=== PATIENT | male | born 1960 | race Caucasian/White ===

== ENCOUNTER → 2018-11-16 14:16 | Outpatient (CLI) | payer OTHER, SELFPAY ==
[2018-11-16 14:36] LABS: Basophils # 0.1 K/mm3 (0-0.2); Basophils % 0.8 % (0.1-2.0); Eosinophils # 0.2 K/mm3 (0.0-0.4); Eosinophils % 2.8 % (0.1-12.0); Hematocrit 49.5 % (42.0-52.0); Hemoglobin 16.4 g/dL (14.1-18.0); Lymphocytes # 2.1 K/mm3 (0.7-4.5); Lymphocytes % 30.4 % (10-50); Mean Corpuscular HGB Conc 33.2 g/dL (31.8-35.4); Mean Corpuscular Hemoglobin 33.4 pg (27.0-31.2); Mean Corpuscular Volume 100.6 fl (80-94); Mean Platelet Volume 8.5 fl (7.4-10.4); Monocytes # 0.5 K/mm3 (0.1-1.0); Neutrophils # 4.1 K/mm3 (1.8-7.8); Neutrophils % 58.9 % (37.0-80.0); Platelet Count 285 K/mm3 (142-424); Red Blood Count 4.92 M/mm3 (4.60-6.20); Red Cell Distribution Width 13.4 % (11.5-17.5)
[2018-11-16 15:20] LABS: Alanine Aminotransferase 65 U/L (12-78); Albumin Level 3.9 gm/dL (3.4-5.0); Albumin/Globulin Ratio 1.1 (1.1-1.8); Alkaline Phosphatase 110 U/L (46-116); Anion Gap 16.2 mEq/L (5-15); Aspartate Amino Transferase 22 U/L (15-37); Bilirubin,Total 0.3 mg/dL (0.2-1.0); Blood Urea Nitrogen 17 mg/dL (7-18); Calcium 9.4 mg/dL (8.5-10.1); Carbon Dioxide 25 mmol/L (21.0-32.0); Chloride 105 mmol/L (98-107); Chol/HDL Ratio 7.7 (1-3.5); Cholesterol 222 mg/dL (140-200); Creatinine,Serum 0.74 mg/dL (0.70-1.30); Estimated Glomerular Filt Rate 109 ml/min (>60); Free T4 (Free Thyroxine) 0.92 ng/dl (0.76-1.46); GFR (African American) 132 ML/MIN (>60); Globulin 3.5 gm/dl (1.3-3.2); Glucose 86 mg/dL (74-106); HDL Cholesterol 29 mg/dL (27-67); Potassium 4.2 mmoL/L (3.5-5.1); Prostate Specific Ag Screen 1.2 ng/mL (0.0-4.0); Sodium 142 mmol/L (136-145); Thyroid Stimulating Hormone 2.48 uIU/ml (0.358-3.740); Total Protein,Serum 7.4 gm/dL (6.4-8.2); Triglycerides 404 mg/dL (30-200)
[2018-11-16 15:35] LABS: Hemoglobin A1C 5.7 % (0.0-7.0)
[2018-11-18 09:13] LABS: Hep A Ab, IgM Negative (Negative); Hepatitis B Core Antibody IgM Negative (Negative); Hepatitis B Surface Antigen Negative (Negative)
[2018-11-19 16:28] LABS: Vitamin D 25 Hydroxy 10.5 ng/mL (30.0-100.0)
[2018-11-19 16:33] LABS: Hepatitis C Antibody <0.1 s/co ratio (0.0-0.9)
== END ==
PROVIDERS: Physician Assistant; Visit Provider Nurse Practitioner Family
DX: D72.829 Elevated white blood cell count, unspecified (principal); E66.9 Obesity, unspecified; Z72.0 Tobacco use; R53.83 Other fatigue; E11.9 Type 2 diabetes mellitus without complications; G25.81 Restless legs syndrome
CPT/HCPCS: 80053; 80061; 80074; 82607; 82652; 82746; 83036; 84439; 84443; 85025; G0103

== ENCOUNTER → 2018-11-23 14:09 | Outpatient (CLI) | payer OTHER, SELFPAY ==
--- NOTE | 2018-11-23 14:10 | MR_ITS ---
PROCEDURE: MR HIP LT WO CON CLINICAL INDICATION: abnormal xr Left hip pain, pain when walking COMPARISON: HIP2L HIP-2 VIEWS-LT from 10/08/2013 Hip L from 10/31/2018 TECHNIQUE: Routine multiplanar multi echo sequences are performed without gadolinium enhancement. FINDINGS: There are severe osteoarthritic changes of the left hip with loss of joint space, osteosclerosis, subarticular cystic change, and flattening of the femoral head with osteophytes noted. There is a small left hip joint effusion. There is mild lateral displacement of the femoral head with buttressing osteophytes along the lateral aspect of the acetabulum and inferior aspect of the femur. There is some edema in the femoral head. The right femoral head has an unremarkable appearance aside from mild osteoarthritic changes of the right hip. There is however, an area of decreased T1 and increased T2 signal within the inferior aspect of the right ilium which extends to the anterior aspect of the acetabular roof this is fairly well-circumscribed and may contain some internal matrix. Possible enchondroma or chondrosarcoma. No soft tissue component evident. Would suggest a CT scan for better bony definition and a nuclear medicine bone scan to determine activity. If a bone scan is performed would go ahead and do at of the whole body with attention to the right pelvis as a metastatic lesion is also consideration. IMPRESSION: 1. 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 Somewhat suspicious lesion involves the right ilium inferiorly and anteriorly extending to the acetabular region. There is question of some internal matrix within this lesion. Suggest CT scan for better bony definition as well as nuclear medicine bone scan to determine activity of the lesion Dictated by: Monster Chin MD 11/25/2018 13:07 Signed by: <Electronically signed by Monster Chin MD in [place]> 11/25/2018 13:07
== END ==
PROVIDERS: PCP Nurse Practitioner Family; Visit Provider Nurse Practitioner Family
DX: M25.552 Pain in left hip (principal)
CPT/HCPCS: 73721

== ENCOUNTER → 2018-11-28 09:32 | Outpatient (POV) | payer OTHER, SELFPAY ==
[2018-11-28 09:42] VITALS: BP 197/88; PULSE 87; RESP 18; O2SAT 98; BMI 32.3
--- NOTE | 2018-11-28 10:07 | HMH.PMCON ---
Assessment and Plan (1) Hip pain, left Current visit: No Status: Chronic Category: Medical Code(s): M25.552 - Pain in left hip (2) Osteoarthritis Current visit: No Status: Chronic Qualifiers: Osteoarthritis location: hip Osteoarthritis type: unspecified Laterality: left Qualified Code(s): M16.12 - Unilateral primary osteoarthritis, left hip Category: Medical Code(s): M19.90 - Unspecified osteoarthritis, unspecified site - Assessment and plan all Dx Assessment and Plan for all problems:: Patient I had a long discussion in regards to following up with PCP in regards to his lesion noted on his MRI. Patient and I also discussed that at this point there is not a lot we can offer him. I did recommend that he get an orthopedic consultation. Patient states that he had one here however he was unhappy with the physician. I discussed potentially seeing . I will follow-up with the patient in the future if he is in any need of our services. Dr. Hudson has reviewed this note and agrees with this plan of care. This note was dictated using voice recognition software and may contain errors or omissions HPI - Data of Consult Consult date: 11/28/18 Requesting Physician: Emili Mata APRN Primary Care Provider: Nghia Bui APRN Family Provider: Michelet Bui APRN - Consult Narrative Reason for consult: Hip pain History of present illness: Mr. Manuel is a 58 year old male who presents today for consultation in regards to his hip pain. Is worse in the left side. Patient does have an MRI of his left hip which shows severe osteoarthritic changes loss of joint space, osteosclerosis, flattening of the femoral head and osteophytosis. Patient also had an incidental finding of a lesion on the right ilium. Patient and I discussed this. Patient has not seen orthopedic surgeon at this time. He would be high risk for any surgery due to his consumption of 3 packs a day of cigarettes for 40 years and 3 cases of beer a week for 40 years. Patient and I had a long discussion in regards to what we could do for him. Patient has had injections in the past with no real relief. Due to the fact that his pain is mechanical in nature I do not believe that injections will be beneficial for him. CC: Emili Mata APRN [facility] History I have reviewed the patient's past medical history: Yes Medical History: Denies:: Anxiety, Chronic Obstructive Pulmonary Disease (COPD), Diabetes Mellitus Type 1, Diabetes Mellitus Type 2, Gastroesophageal Reflux Disease(GERD), Transient Ischemic Attacks (TIA), Tuberculosis *Have you ever received a pneumonia vaccine?: Yes *Have you received a flu vaccine this season?: Yes Other Medical History: Reports: Arthritis Laterality Cases: Right: Arthroscopy Shoulder Other Surgeries: Yes: Hernia Repair Amputation: No Fractures: Yes - *Social History Smoking Status: Current every day smoker Tobacco Type: cigarettes # Packs/Day (cigarettes): 3 Alcohol Intake: never Alcohol Intake Frequency:: 3 or more drinks per day *Occupational Status:: other Housing: house Household Members: none *Travel in the last 8 weeks: None - Psychiatric History Pschychiatric History:: Denies:: Anxiety Family Hx:: No significant family history Review of Systems - Review of Systems ROS General: no recent weight change, no fever, no sleep disturbances Respiratory: no cough, no shortness of air, no recurring pulmonary infections Cardiovascular/Peripheral Vascular: No chest pain, No palpitations, no edema, no shortness of breath. Gastrointestinal: no incontinence, normal bowel movements reported Genitourinary: no incontinence Musculoskeletal: Hip pain Psychiatric: normal mood/ affect Neurological: [denies weakness in extremities], [denies balance issues] Meds Home Medications Medication Instructions Recorded Confirmed Type Ibuprofen [Ibuprofen 600mg 600 mg PO Q6HP PRN #30 tab 07
--- NOTE | 2018-11-28 10:11 | P.CONS_ITS ---
Assessment and Plan (1) Hip pain, left Current visit: No Status: Chronic Category: Medical Code(s): M25.552 - Pain in left hip (2) Osteoarthritis Current visit: No Status: Chronic Qualifiers: Osteoarthritis location: hip Osteoarthritis type: unspecified Laterality: left Qualified Code(s): M16.12 - Unilateral primary osteoarthritis, left hip Category: Medical Code(s): M19.90 - Unspecified osteoarthritis, unspecified site - Assessment and plan all Dx Assessment and Plan for all problems:: Patient I had a long discussion in regards to following up with PCP in regards t o his lesion noted on his MRI. Patient and I also discussed that at this point there is not a lot we can offer him. I did recommend that he get an orthopedic consultation. Patient states that he had one here however he was unhappy with the physician. I discussed potentially seeing . I will follow-up with the patient in the future if he is in any need of our services. Dr. Hudson has reviewed this note and agrees with this plan of care. This note was dictated using voice recognition software and may contain errors or omissions HPI - Data of Consult Consult date: 11/28/18 Requesting Physician: Emili Mata APRN Primary Care Provider: Nghia Bui APRN Family Provider: Michelet Bui APRN - Consult Narrative Reason for consult: Hip pain History of present illness: Mr. Manuel is a 58 year old male who presents today for consultation in regards to his hip pain. Is worse in the left side. Patient does have an MRI of his left hip which shows severe osteoarthritic changes loss of joint space, osteosclerosis, flattening of the femoral head and osteophytosis. Patient also had an incidental finding of a lesion on the right ilium. Patient and I discussed this. Patient has not seen orthopedic surgeon at this time. He would be high risk for any surgery due to his consumption of 3 packs a day of cigarettes for 40 years and 3 cases of beer a week for 40 years. Patient and I had a long discussion in regards to what we could do for him. Patient has had injections in the past with no real relief. Due to the fact that his pain is mechanical in nature I do not believe that injections will be beneficial for him. CC: Emili Mata APRN [facility] History I have reviewed the patient's past medical history: Yes Medical History: Denies:: Anxiety, Chronic Obstructive Pulmonary Disease (COPD), Diabetes Mellitus Type 1, Diabetes Mellitus Type 2, Gastroesophageal Reflux Disease(GERD), Transient Ischemic Attacks (TIA), Tuberculosis *Have you ever received a pneumonia vaccine?: Yes *Have you received a flu vaccine this season?: Yes Other Medical History: Reports: Arthritis Laterality Cases: Right: Arthroscopy Shoulder Other Surgeries: Yes: Hernia Repair Amputation: No Fractures: Yes - *Social History Smoking Status: Current every day smoker Tobacco Type: cigarettes # Packs/Day (cigarettes): 3 Alcohol Intake: never Alcohol Intake Frequency:: 3 or more drinks per day *Occupational Status:: other Housing: house Household Members: none *Travel in the last 8 weeks: None - Psychiatric History Pschychiatric History:: Denies:: Anxiety Family Hx:: No significant family history Review of Systems - Review of Systems ROS General: no recent weight change, no fever, no sleep disturbances Respiratory: no cough, no shortness of air, no recurring pulmonary infections Cardiovascular/Peripheral Vascular: No chest pain, No palpitations, no edema, no shortness
== END ==
PROVIDERS: PCP Nurse Practitioner Family; Visit Provider Clinical Nurse Specialist Family Health
DX: M25.552 Pain in left hip (principal); M16.12 Unilateral primary osteoarthritis, left hip
CPT/HCPCS: 99202

== ENCOUNTER → 2019-09-19 07:53 | Outpatient (CLI) | payer OTHER, SELFPAY ==
--- NOTE | 2019-09-19 07:53 | XR_ITS ---
PROCEDURE: XR HIP RT 2-3V W/PELVIS CLINICAL INDICATION: hip pain COMPARISON: HIP2L HIP-2 VIEWS-LT from 10/08/2013 Hip L from 10/31/2018 CT HIP LT WO CON from 09/19/2019 FINDINGS: An AP view of the pelvis shows severe osteoarthritic changes of the left hip with some cortical collapse of the femoral head and subcortical sclerosis and lucency consistent with avascular necrosis with associated osteoarthritis. Not significantly changed from 10/31/2018. There are [id number] osteoarthritic changes of the right hip. No acute fracture or dislocation. The IMPRESSION: 1. Foxz-wg-[id number] osteoarthritis of the right hip. 2. Severe osteoarthritic change of the left hip with dystrophic changes. Possible avascular necrosis Dictated by: Monster Chin MD 09/19/2019 09:16 Electronically signed by Monster Chin MD in [place] 09/19/2019 09:16
--- NOTE | 2019-09-19 07:53 | CT_ITS ---
PROCEDURE: CT HIP LT WO CON CLINICAL HISTORY: bone lesion Left hip pain COMPARISON: Hip L from 10/31/2018 MR HIP LT WO CON from 11/23/2018 XR HIP RT 2-3V W/PELVIS from 09/19/2019 TECHNIQUE: Axial images obtained with sagittal and coronal reformats. All CT scans at the facility use one or more dose reduction, viz: automated exposure control, ma/kV adjustment per patient size (including targeted exams where dose is matched to indication, i.e. head), or iterative reconstruction technique. FINDINGS: There are severe osteoarthritic changes of the left hip with loss of joint space superiorly, chondral sclerotic changes, subchondral cystic changes of both the acetabular roof and the femoral head, osteophyte formation. There is mild lateral subluxation the femoral head. Prominent subcortical cystic changes are present in the femoral head acetabular roof. There is some bony buttressing of the medial wall of the acetabulum. No acute fracture or dislocation is evident. No aggressive lytic changes. Dysplastic changes are present involving the femoral head. There is a 14 mm subchondral cyst of the femoral head along with other smaller subchondral cystic lesions. Incidental note is made diverticulosis. This exam only included the left hip and did not include the right hip where there was a previously noted lesion on the MRI of 11/23/2018 IMPRESSION: Severe osteoarthritic changes of the left hip with sub chondral cystic changes and osteosclerosis. There is mild dysplastic changes of the femoral head and mild lateral subluxation of the femur Dictated by: Monster Chin MD 09/21/2019 16:22 Electronically signed by Monster Chin MD in [place] 09/21/2019 16:22
--- NOTE | 2019-09-19 07:53 | XR_ITS ---
PROCEDURE: XR LUMBAR SPINE 6V W BENDING CLINICAL INDICATION: back pain COMPARISON: XR HIP RT 2-3V W/PELVIS from 09/19/2019 FINDINGS: Normal alignment. Mild multilevel degenerative disc disease from T10-S1. No malalignment. No acute fracture or dislocation. No lytic or blastic change. Mild facet arthritic changes are present at L5-S1. There is generalized vascular calcification. Flexion and extension views are obtained showing no abnormal subluxation. IMPRESSION: Lumbar spondylosis. Please see above for detail Dictated by: Monster Chin MD 09/19/2019 09:13 Electronically signed by Monster Chin MD in [place] 09/19/2019 09:13
--- NOTE | 2019-10-12 16:01 | SW/DCPLANNER ---
Attempted to contact this patient regarding home situation/discharge plan once hip surgery is scheduled. No answer at this time...I will attempt to contact this patient next week.
--- NOTE | 2019-10-22 16:20 | SW/DCPLANNER ---
I have spoke this to discuss a safe discharge plan if patient has total hip replacement. I was asked to engage in this discussion by Dr Uriarte. Patient was pleasant and answered all questions appropriately. Patient stated that he resides in a small home that he rents here in [place]. Patients only way of transportation is a motorcycle. Patient stated that he has absolutely no family/friends here in [place]. I did explain options of placement ([facility] pending) vs home health. Patient was not interested in [facility] pending placement due to having to stay at least 30 days and payment is monthly income check all but $40. Patient stated I would have a residential to go to but then I would be homeless . I then explained home health services to this patient and he was more interested in this option. I did explain to patient that once he has surgery, PT would then evaluate and let us know if patient is more appropriate for placement vs home health. Patient stated that he would need more time to think about his decision. I have spoke with Dr Uriarte regarding this patient as well. Dr Uriarte is unsure if patient will even have surgery at this time. I will continue to follow up with Dr Uriarte/patient and assist with any other needs.
== END ==
PROVIDERS: PCP Nurse Practitioner Family; Visit Provider Nurse Practitioner Family
DX: M25.552 Pain in left hip (principal); M54.9 Dorsalgia, unspecified
CPT/HCPCS: 72114; 73502; 73700

== ENCOUNTER → 2021-07-08 08:26 | Outpatient (CLI) | payer MEDICARE, OTHER, SELFPAY ==
--- NOTE | 2021-07-08 08:34 | XR_ITS ---
FINAL REPORT CLINICAL HISTORY: Left hip pain FINDINGS: 2 views of the left hip with an AP pelvis were obtained. There is no acute fracture or dislocation. There are severe degenerative changes of the bilateral hips. There is superolateral subluxation of the left femur. There are multiple subchondral cysts in the superior femoral heads. There are subchondral cysts in the superior left acetabulum. There is flattening of the left superior femoral head. IMPRESSION: Severe left hip degenerative change with superolateral subluxation of the femur and flattening of the femoral head. Severe degenerative change of the right hip. Reviewed, Interpreted and Dictated by Jose Antonio Melendez III, MD Transcribed by Chad Braswell Authenticated by Jose Antonio Melendez III, MD on 07/08/2021 10:14:40 AM [facility]
--- NOTE | 2021-07-08 08:34 | XR_ITS ---
FINAL REPORT CLINICAL HISTORY: Right hip pain FINDINGS: 2 views of the right hip were obtained. There is no acute fracture or dislocation. There are severe degenerative changes. There are subchondral cysts in the superior femoral head. There are no soft tissue abnormalities. IMPRESSION: Severe degenerative change. Reviewed, Interpreted and Dictated by Jose Antonio Melendez III, MD Transcribed by Chad Braswell Authenticated by Jose Antonio Melendez III, MD on 07/08/2021 10:15:[address] [facility]
== END ==
PROVIDERS: Visit Provider Orthopaedic Surgery
DX: M25.552 Pain in left hip (principal); M25.551 Pain in right hip
CPT/HCPCS: 73502

== ENCOUNTER 2024-01-16 11:41 | Emergency (ER) | payer MEDICARE, SELFPAY ==
[2024-01-16 11:57] VITALS: BP 107/64; PULSE 97; RESP 16; TEMP 36.6; O2SAT 97; BMI 28.7
--- NOTE | 2024-01-16 12:34 | ED_ITS ---
Discharge Plan Disposition Patient Disposition: Xfer Other Referrals Follow up/Referrals: Provider,Referral, [Primary Care Provider] - See instructions Clinical Impressions Clinical Impression: Ascites, Anemia, Liver masses, TRISH (acute kidney injury) Print Language Print Language: Barbadian Discharge ED Provider: Leonora Small General Adult HPI General Chief complaint: Weakness Stated complaint: swollen legs diarrhea hard time talking Time Seen by Provider: 01/16/24 12:13 Mode of Arrival: Wheelchair Source of Information: Patient Limitations: No Limitations Description of Symptoms (Recalled from ER Triage Doc. by RN): pt c/o diarrhea and unintintional weight loss. pt is unsure how much he weighs or how much he previously weighed. pt also c/o a flair up of chronic bilateral hip pain for an unknown amount of time, causing weakness. pt has BLE 3+ edema and appears jaundiced. pt is a poor historian, the son reports he has not been to a dr in 5- 10 years. pt denies daily meds or medical dx. History of Present Illness HPI narrative: 63-year-old male presents today after being found down by his presents today with his son for significant deconditioning over the last several months. His son who is a primary historian along with the patient states that he has gotten significantly more weak over the last few months that his skin color has changed he is much more pale abdomen is more distended and just overall is more fatigued. The patient has a history of extensive alcohol abuse but has not had a drink in over a year. No history of cirrhosis that he is aware of. He denies any melena. Denies any history of heart failure. States he is severely fatigued and denies other acute symptoms at the moment. Not on any anticoagulants or antiplatelet agents. Also does endorse bilateral lower extremity edema. Related Data Allergies Allergy/AdvReac Type Severity Reaction Status Date / Time No Known Allergies Allergy Verified 07/08/21 09:29 [facility] Disclaimer: The information contained in this section may have been updated after the patient was seen, as this information can be updated by other users. Social History Smoking Status: Former smoker tobacco type: cigarettes packs per day: 3 alcohol intake: never current occupational status: unemployed Travel in the last 8 weeks: None household members: none housing: house Other Medical History Have you received the Flu Vaccine for this season: Yes Have you received the Pneumonia Vaccine: No ROS Obtained: Yes All systems reviewed & no additional complaints except as documented Physical Exam General General appearance: other (Ill-appearing very pale) Respiratory Respiratory exam: Present normal lung sounds bilaterally; Absent respiratory distress Cardiovascular Cardiovascular exam: Present regular rate and normal rhythm Abdominal Exam Abdominal exam: Present other (Significantly distended hepatosplenomegaly palpated on exam with a positive fluid wave) Extremities Exam Extremities exam: Present other (Extremity wasting) Neurological Exam Neurological exam: Present alert and oriented X3 Medical Decision Making Medical Records Screening: Per USPSTF and CDC recommendations, given the prevalence of disease in our region, it is our hospital?s policy to screen for HIV and viral Hepatitis for all patients aged 18 and over and those with ongoing risk factors. Alec Inquiry Pt receiving controlled substance: No Vital Signs: 01/16/24 11:57 01/16/24 13:05 01/16/24 13:30 Temperature 97.9 F Temperature Source Oral Pulse Rate 94 H 97 H Pulse Rate [Left] 97 H Respiratory Rate 16 Blood Pressure 122/68 133/63 Blood Pressure [Right Arm] 107/64 L Blood Pressure Mean [Right Arm] 78 Blood Pressure Source [Right Arm] Automatic Cuff Blood Pressure Position [Right Arm] Sitting 02 Sat by Pulse Oximetry 97 97 97 Oxygen Delivery Method Room Air Room Air Room Air 01/16/24 14:00 Temperature Temperature Source Pulse Rate 97 H Pulse Rate [Left] Respiratory Rate Blood Pressure 125/66 Blood Pressure [Right Arm] Blood Pressure Mean [Right Arm] Blood Pressure Source [Right Arm] Blood Pressure Position [Right Arm] 02 Sat by Pulse Oximetry 96 Oxygen Delivery Method Room Air Lab Data Lab results reviewed: Yes I reviewed the patient's lab results. Lab Results 01/16/24 11:59: WBC 12.6 H, RBC 3.08 L, Hgb 9.4 L, Hct 29.1 L, MCV 94.5 H, MCH 30.5, MCHC 32.3, RDW 18.1 H, Plt Count 317, MPV 8.3, Neut % (Auto) 84.9 H, Lymph % (Auto) 9.0 L, Alexander % (Auto) 5.7, Eos % (Auto) 0.1, Baso % (Auto) 0.3, Neut # (Auto) 10.7 H, Lymph # (Auto) 1.1, Alexander # (Auto) 0.7, Eos # (Auto) 0.0, Baso # (Auto) 0.0, PT 12.6 H, INR 1.14 H, Sodium 138, Potassium 5.1, Chloride 106, C arbon Dioxide 17 L, Anion Gap 20.1 H, BUN 66 H, Creatinine 4.10 H, Estimated Creat Clear 24, Estimated GFR 15 L*, Est GFR ( Amer) 18 L*, Glucose 97, Calcium 8.7, Total Bilirubin 1.2, AST 283 H, ALT 112 H, Alkaline Phosphatase 380 H, Troponin I < 0.01, Total Protein 7.3, Albumin 3.9, Globulin 3.4 H, Albumin/Globulin Ratio 1.1, Lipase 609 H 01/16/24 12:28: VBG pH 7.31, VBG pCO2 31.8 L, VBG pO2 42.5 H, VBG HCO3 15.6 L, V BG Total CO2 16.6 L, VBG O2 Saturation 67.3, VBG Base Excess -10.7 L, VBG Lactic Acid 4.6 H 01/16/24 12:38: Ammonia < 9 L, Blood Type A Positive, Antibody Screen Negative 01/16/24 11:59 01/16/24 11:59 Orders (Tests/Meds): ED MEDICATIONS Discontinued Medications Generic Name Dose Route Start Last Admin Trade Name Freq PRN Reason Stop Dose Admin Lactated Ringer's 500 mls @ 999 mls/hr 01/16/24 12:30 01/16/24 12:35 Lactated Ringer's 1000 Ml Bag IV 01/16/24 13:00 999 mls/hr .Q31M THERESA Administration ORDERS Category Date Time Status Type and Screen Stat BBK 01/16/24 12:[address] abdomen pelvis wo con Stat Cat Scan 01/16/24 12:[address] chest wo con Stat Cat Scan 01/16/24 12:47 Completed POCUS Point of Care (ER Only) Stat Exams 01/16/24 12:18 Completed Ammonia Stat Lab 01/16/24 12:38 Completed CBC w/Auto Diff [Complete Blood Count Auto Diff] Stat Lab 01/16/24 11:59 Completed CMP [Comprehensive Metabolic Panel] Stat Lab 01/16/24 11:59 Completed HIV (1&2) Antibody Rapid Stat Lab 01/16/24 11:59 Received Hep C Ab with Reflex to RNA Stat Lab 01/16/24 11:59 Received Lactate Venous Stat Lab 01/16/24 13:34 Ordered Lipase Stat Lab 01/16/24 11:59 Completed Occult Blood,Stool Stat Lab 01/16/24 12:27 Ordered PT INR [Prothrombin Time INR] Stat Lab 01/16/24 11:59 Completed Trop I [Troponin I] Stat Lab 01/16/24 11:59 Completed Troponin I Q3H Lab 01/16/24 15:30 Ordered Troponin I Q3H Lab 01/16/24 18:30 Ordered Venous Blood Gas Stat RT 01/16/24 12:28 Completed ECG Data Tracing #1: I reviewed this ECG and interpreted as documented below: Ventricular rate of 94 normal sinus rhythm no acute ischemic changes noted no significant conduction abnormalities and there is normal axis Medical Decision Narrative: Chronically ill-appearing 63-year-old male presents today with extremity wasting rounded abdomen hepatosplenomegaly on exam and pallor. All of this has the appearance of cirrhosis and ascites. However on ultrasound he has a heterogenously enlarged liver and spleen making malignancy on the differential. Broad workup has been initiated and will reassess after that workup is complete. CT scan performed which I personally interpreted which shows no acute abnormalities in the chest however the abdomen pelvis there is marked about a megaly with multiple low attenuating masses concerning for primary liver cancer diffuse hepatic metastatic disease. There is also ascites as was previously noted on my bedside ultrasound. Patient also has acute renal insufficiency with a creatinine above for baseline less than 1. LFTs are elevated as would be expected. I was able to have an extensive discussion with the patient and his family about this and they are aware of this. He will need a multidisciplinary team will need a tissue diagnosis need management of his renal insufficiency and his anemia. Does not require transfusion at the moment. My first call will be to the [facility] for transfer. I spoke with [facility] transfer center and they accepted the patient to [facility]. Accepting physician was Dr. Obrien. Procedures Miscellaneous Procedure Procedure Performed: Limited abdominal ultrasound Indication abdominal distention Findings diffusely and heterogenously enlarged liver and spleen as well as diffuse ascites findings concerning for possible malignancy and/or decompensated cirrhosis Conclusion as above Images were saved and adequate Limited cardiac ultrasound Indication: Dyspnea Identified structures: The heart was visualized in the parasternal long axis, parastenal short axis, apical four chamber and subxyphiod views. The IVC was visualized in the short axis and long axis at its entry into the right atrium. Findings: Normal LVEF no right heart strain or pericardial effusion Impression: Unremarkable limited cardiac ultrasound This study was performed by me, and I personally interpreted all images/videos. Based on my clinical judgement, these images were adequate and did not necessitate further imaging. Critical Care Critical Care Time Critical Care Time: Yes Attestation: On 01/16/24, the high probability of a clinically significant, sudden or life threatening deterioration of the following system(s) required my full and direct attention, intervention and personal management. The time I documented below is in addition to time spent performing reported procedures but includes the following listed in this critical care notation. Total Time Total Critical Care Time: 65
[2024-01-16] MEDS: LACTATED RINGERS 1000ML 500 ML 999 ML IV (12:35)
--- NOTE | 2024-01-16 12:35 | ECG_ITS ---
APPROVED REPORT Exam: Resting ECG HR:94 bpm ECG Measurements Heart Rate 94 AXES CA 131 P 58 QRSd 106 QRS 66 QT 372 T 52 QTc 423 Conclusion SINUS RHYTHM INCOMPLETE RIGHT BUNDLE BRANCH BLOCK [90+ ms QRS DURATION, TERMINAL R IN V1/V2, 40+ ms S IN I/aVL/V4/V5/V6] BORDERLINE ECG UNCONFIRMED REPORT Electronically signed by : Rancho Small, 01/17/2024 14:53:34
[2024-01-16 12:36] LABS: Albumin Level 3.9 g/dl (3.5-5.0); Chloride 106 mmol/L (98-107); Potassium 5.1 mmoL/L (3.5-5.1); Sodium 138 mmol/L (136-145)
[2024-01-16 12:37] LABS: Basophils % 0.3 % (0.1-2.0); Eosinophils % 0.1 % (0.1-12.0); Hemoglobin 9.4 g/dL (14.1-18.0); Lymphocytes # 1.1 K/mm3 (0.7-4.5); Mean Corpuscular HGB Conc 32.3 g/dL (31.8-35.4); Mean Corpuscular Hemoglobin 30.5 pg (27.0-31.2); Mean Corpuscular Volume 94.5 fl (80-94); Mean Platelet Volume 8.3 fl (7.4-10.4); Monocytes # 0.7 K/mm3 (0.1-1.0); Monocytes % 5.7 % (1.7-9.3); Neutrophils # 10.7 K/mm3 (1.8-7.8); Neutrophils % 84.9 % (37.0-80.0); Platelet Count 317 K/mm3 (142-424); Red Blood Count 3.08 M/mm3 (4.60-6.20); Red Cell Distribution Width 18.1 % (11.5-17.5); White Blood Count 12.6 K/mm3 (4.8-10.8)
--- NOTE | 2024-01-16 12:38 | PC.NURSE ---
RT AWARE OF VBG. LAB AT BEDSIDE TO WITNESS TYPE AND SCREEN
[2024-01-16 12:39] LABS: Alanine Aminotransferase 112 U/L (12-78); Albumin/Globulin Ratio 1.1 (1.1-1.8); Alkaline Phosphatase 380 U/L (38-126); Anion Gap 20.1 mEq/L (5-15); Aspartate Amino Transferase 283 U/L (17-59); Bilirubin,Total 1.2 mg/dl (0.2-1.3); Blood Urea Nitrogen 66 mg/dl (9-20); Calcium 8.7 mg/dl (8.4-10.2); Carbon Dioxide 17 mmol/L (22.0-30.0); Creatinine Clearance Estimated 24 mL/min (50-200); Estimated Glomerular Filt Rate 15 ml/min (>60); GFR (African American) 18 ML/MIN (>60); Globulin 3.4 g/dL (1.3-3.2); Glucose 97 mg/dl (74-100); Total Protein,Serum 7.3 g/dl (6.3-8.2)
[2024-01-16 12:41] LABS: INR 1.14 (0.9-1.1); Prothrombin Time 12.6 seconds (10.1-12.5)
[2024-01-16 12:45] LABS: Lipase 609 U/L (23-300)
[2024-01-16 12:46] LABS: Hematocrit 29.1 % (42.0-52.0)
--- NOTE | 2024-01-16 12:47 | CT_ITS ---
FINAL REPORT TECHNIQUE: Axial images were obtained through the chest without contrast. This study was performed with techniques to keep radiation doses as low as reasonably achievable (ALARA). Individualized dose reduction techniques using automated exposure control or adjustment of mA and/or kV according to the patient's size were employed. CLINICAL HISTORY: WEAKNESS FINDINGS: There are few small scattered mediastinal lymph nodes. Prevascular nodes measure up to 1.4 cm. Subcarinal nodes measure up to 2.6 cm. The heart size is normal. There is no pericardial or pleural effusion. The lungs are clear. There is mild anterior osteophyte formation in the lower thoracic spine. IMPRESSION: Scattered mediastinal lymph nodes. No acute pulmonary abnormality. Reviewed, Interpreted and Dictated by Julio C Currie MD Transcribed by Reena Garcia Authenticated and [facility]
--- NOTE | 2024-01-16 12:47 | CT_ITS ---
FINAL REPORT TECHNIQUE: Axial images through the abdomen and pelvis were performed without contrast. This study was performed with techniques to keep radiation doses as low as reasonably achievable, (ALARA). Individualized dose reduction techniques using automated exposure control or adjustment of mA and/or kV according to the patient's size were employed. CLINICAL HISTORY: Generalized weakness, epigastric pain COMPARISON: None FINDINGS: Abdomen: There are extensive, ill-defined regions of decreased attenuation throughout the liver, particularly in the right lobe. Areas of low-attenuation measure up to 10 cm in greatest dimension and appear to represent an infiltrative process. The liver is diffusely enlarged measuring up to 29 cm in craniocaudal dimension. High attenuation ascites is seen at the margins of the liver and demonstrate a mean attenuation value of 30 Hounsfield units. Calcified granulomas are noted in the spleen. The pancreas is unremarkable. The right adrenal gland is unremarkable. There is left adrenal hyperplasia. A benign-appearing cyst is seen in the posterior right kidney measuring up to 2.7 cm. The left kidney is unremarkable. Pelvis: There is high attenuation ascites in the pelvis which demonstrates a mean attenuation value of 27 Hounsfield units. The urinary bladder is incompletely distended. The GI tract demonstrates no obstruction. There are advanced changes of osteoarthritis of the hips bilaterally with subchondral sclerosis and degenerative cyst formation. IMPRESSION: Marked hepatomegaly with infiltrative low-attenuation masses highly concerning for diffuse hepatic metastatic disease. High attenuation ascites which could be hemorrhagic or purulent. Fluid sampling may be of value. Advanced changes of osteoarthritis in the hip joints bilaterally. Reviewed, Interpreted and Dictated by Julio C Currie MD Transcribed by Reena Garcia Authenticated and [facility]
[2024-01-16 12:50] LABS: VBG Base Excess -10.7 mmol/L (-2.4-2.3); VBG HCO3 15.6 mmol/L (23-30); VBG Oxygen Saturation 67.3 % (50-70); VBG PCO2 31.8 mmol/L (35-51); VBG PH 7.31 mmol/L (7.31-7.41); VBG PO2 42.5 mmol/L (28-40); VBG Total CO2 16.6 mmol/L (23-27)
--- NOTE | 2024-01-16 12:53 | PC.NURSE ---
PT TRANSPORTED TO RADIOLOGY VIA [facility]
[2024-01-16 12:54] LABS: Ammonia < 9 umol/L (9-30)
[2024-01-16 12:54] LABS: Lactate Venous 4.6 mmol/L (0.4-2.0)
[2024-01-16 13:01] LABS: Troponin I < 0.01 ng/ml (0.00-0.034)
--- NOTE | 2024-01-16 13:03 | PC.NURSE ---
PT RETURNED FROM RADIOLOGY
[2024-01-16 13:05] VITALS: BP 122/68; PULSE 94; O2SAT 97
[2024-01-16 13:30] VITALS: BP 133/63; PULSE 97; O2SAT 97
[2024-01-16 14:00] VITALS: BP 125/66; PULSE 97; O2SAT 96
--- NOTE | 2024-01-16 14:01 | PC.NURSE ---
DR IRDER AT BEDSIDE
--- NOTE | 2024-01-16 14:08 | PC.NURSE ---
RADIOLOGY NOTIFIED TO POWER [email or web address] [facility] TO [facility]
--- NOTE | 2024-01-16 14:12 | PC.NURSE ---
Called [facility] per Dr Small to speak with them about this pt. [facility] advised that they would call us back.
--- NOTE | 2024-01-16 14:27 | PC.NURSE ---
[facility] called back and is speaking with Dr Rizzo at this time
[2024-01-16 14:30] VITALS: BP 130/63; PULSE 94; O2SAT 97
--- NOTE | 2024-01-16 14:37 | PC.NURSE ---
Pt was accepted by Dr Obrien at
[2024-01-16 14:49] LABS: HIV (1&2) Antibody Rapid NONREACTIVE (NONREACTIVE)
--- NOTE | 2024-01-16 14:53 | PC.NURSE ---
[facility] was called about transfer of this pt.
--- NOTE | 2024-01-16 14:53 | PC.NURSE ---
CALLED REPORT TO LOIS YOST RN. [facility] AWARE
[2024-01-16 14:54] VITALS: BP 130/72; PULSE 72; RESP 18; TEMP 36.7; O2SAT 97
--- NOTE | 2024-01-16 15:13 | PC.NURSE ---
[facility] ARRIVED TO TRANSPORT PT
[2024-01-16 16:51] LABS: Reflex Lactic Add Lactic Reflex
[2024-01-17 08:19] LABS: HCV Ab Non Reactive (Non Reactive)
== END 2024-01-16 15:23 | disposition other institution (70) ==
PROVIDERS: Emergency Provider Student in an Organized Health Care Education/Training Program
DX: N17.9 Acute kidney failure, unspecified (principal); R16.0 Hepatomegaly, not elsewhere classified; D64.9 Anemia, unspecified; R18.8 Other ascites; R19.7 Diarrhea, unspecified; R63.4 Abnormal weight loss; M25.551 Pain in right hip; M25.552 Pain in left hip
CPT/HCPCS: 96360; 71250; 74176; 80053; 82140; 82803; 83690; 84484; 85025; 85610; 86803; 86850; 87389; 93005; 99284; J7120